=== PATIENT | female | born 1960 | race Caucasian/White ===

== ENCOUNTER 2021-03-27 10:36 | Outpatient (REF) | payer BC, SELFPAY ==
[2021-03-27 12:40] LABS: MANUAL DIFF FLAG NO
[2021-03-27 12:45] LABS: Basophils Percent Auto 0.6 % (0-2); Eosinophils Absolute Auto 0.1 X10*3/uL (0.0-0.4); Eosinophils Percent Auto 1.5 % (0-4); Hematocrit 40.6 % (37-47); Hemoglobin 13.1 g/dl (12.0-16.0); Imm Gran Abs Auto 0.02 X10*3/uL (0.00-0.03); Imm Gran Pct Auto 0.4 % (0.0-0.4); Lymphocytes Absolute Auto 1.8 X10*3/uL (1.2-4.9); Lymphocytes Percent Auto 33.4 % (20-40); Mean Corpuscular HGB Conc 32.3 g/dl (31.0-35.0); Mean Corpuscular Hemoglobin 29.5 pg (27.0-33.0); Mean Corpuscular Volume 91.4 fL (80-98); Mean Platelet Volume 10.8 fL (9.4-12.3); Monocytes Absolute Auto 0.4 X10*3/uL (0.1-1.2); Monocytes Percent Auto 7.7 % (2-11); Neutrophils Absolute Auto 3.1 X10*3/uL (2.0-8.3); Neutrophils Percent Auto 56.4 % (45-73); Platelet Count 312 X10*3/uL (160-400); Red Blood Count 4.44 X10*6/uL (4.20-5.50); Red Cell Distribution Width 12.9 % (11.0-16.0); White Blood Count 5.5 X10*3/uL (4.8-10.8)
[2021-03-27 13:04] LABS: Iron 100 mcg/dL (30-160); Percent Iron Saturation 23 % (15-50); Total Iron Binding Capacity 431 mcg/dL (228-428); Unsaturated Iron Binding 331 ug/dL
[2021-03-27 13:07] LABS: Alanine Aminotransferase 16 U/L (0-31); Albumin Level 4.8 g/dL (3.5-5.0); Alkaline Phosphatase 79 U/L (39-117); Anion Gap 14 (12-20); Aspartate Amino Transferase 30 U/L (5-31); Bilirubin Total 0.5 mg/dL (0.0-1.0); Blood Urea Nitrogen 18 mg/dL (9-16); Calcium 10.3 mg/dL (8.4-10.2); Carbon Dioxide 25 mmol/L (22-29); Chloride 104 mmol/L (96-108); Estimated Glomerular Filt Rate 59; Glucose Fasting 106 mg/dL (60-99); Potassium 4.3 mmol/L (3.3-5.1); Sodium 139 mmol/L (135-145); Total Protein 7.7 g/dL (6.5-8.0)
[2021-03-27 13:23] LABS: Estimated Average Glucose 120 mg/dL; Hemoglobin A1c % 5.8 %
[2021-03-27 13:26] LABS: Ferritin 149 ng/mL (10-250); Free T4 (Free Thyroxine) 0.82 ng/dL (0.71-1.85)
[2021-03-27 13:41] LABS: Folate > 20.0 ng/mL (> or = 4.0); Vitamin B12 538 pg/mL (200-900)
== END 2021-03-27 10:37 | disposition home or self-care (01) ==
LOC: HO.MANLDS 10:36
PROVIDERS: PCP Physician Assistant; Visit Provider Physician Assistant
DX: R35.0 Frequency of micturition (principal); R63.1 Polydipsia; G47.09 Other insomnia; R53.83 Other fatigue
CPT/HCPCS: 36415; 80053; 82306; 82607; 82728; 82746; 83036; 83540; 84439; 84443; 85025; 87086; 87186

== ENCOUNTER 2021-04-03 11:59 | Outpatient (REF) | payer BC, SELFPAY ==
[2021-04-03 14:16] LABS: Calcium 10.3 mg/dL (8.4-10.2)
[2021-04-04 14:31] LABS: PTHI 16 pg/mL (14-64)
== END 2021-04-03 12:00 | disposition home or self-care (01) ==
LOC: HO.MANLDS 11:59
PROVIDERS: PCP Physician Assistant; Visit Provider Physician Assistant
DX: E83.52 Hypercalcemia (principal)
CPT/HCPCS: 36415; 82310; 83970

== ENCOUNTER 2021-07-17 15:09 | Outpatient (REF) | payer BC, SELFPAY ==
[2021-07-17 17:44] LABS: MANUAL DIFF FLAG NO
[2021-07-17 17:47] LABS: Basophils Percent Auto 0.7 % (0-2); Eosinophils Absolute Auto 0.1 X10*3/uL (0.0-0.4); Eosinophils Percent Auto 1.5 % (0-4); Hematocrit 40.1 % (37.0-47.0); Imm Gran Abs Auto 0.02 X10*3/uL (0.00-0.03); Imm Gran Pct Auto 0.4 % (0.0-0.4); Lymphocytes Absolute Auto 1.7 X10*3/uL (1.2-4.9); Mean Corpuscular HGB Conc 32.4 g/dl (31.0-35.0); Mean Corpuscular Hemoglobin 29.5 pg (27.0-33.0); Mean Corpuscular Volume 90.9 fL (80.0-98.0); Mean Platelet Volume 10.7 fL (9.4-12.3); Monocytes Absolute Auto 0.4 X10*3/uL (0.1-1.2); Monocytes Percent Auto 7.1 % (2-11); Neutrophils Absolute Auto 3.2 x10*3/uL (2.0-8.3); Neutrophils Percent Auto 59.3 % (45-73); Platelet Count 299 X10*3/uL (160-400); Red Blood Count 4.41 X10*6/uL (4.20-5.50); Red Cell Distribution Width 12.8 % (11.0-16.0); White Blood Count 5.4 X10*3/uL (4.8-10.8)
[2021-07-17 17:59] LABS: Alanine Aminotransferase 14 U/L (0-31); Albumin Level 4.6 g/dL (3.5-5.0); Alkaline Phosphatase 87 U/L (39-117); Anion Gap 13 (12-20); Aspartate Amino Transferase 24 U/L (5-31); Bilirubin Total 0.4 mg/dL (0.0-1.0); Blood Urea Nitrogen 16 mg/dL (9-16); Calcium 9.9 mg/dL (8.4-10.2); Carbon Dioxide 26 mmol/L (22-29); Chloride 106 mmol/L (96-108); Estimated Glomerular Filt Rate > 60; Glucose Random 101 mg/dL (60-115); Iron 71 mcg/dL (30-160); Percent Iron Saturation 17 % (15-50); Potassium 3.8 mmol/L (3.3-5.1); Sodium 141 mmol/L (135-145); Total Iron Binding Capacity 414 mcg/dL (228-428); Total Protein 7.4 g/dL (6.5-8.0); Unsaturated Iron Binding 343 ug/dL
[2021-07-17 18:09] LABS: Estimated Average Glucose 120 mg/dL; Hemoglobin A1c % 5.8 %
[2021-07-17 18:40] LABS: Free T4 (Free Thyroxine) 0.84 ng/dL (0.71-1.85)
[2021-07-17 19:11] LABS: Ferritin 120 ng/mL (10-250)
[2021-07-22 08:40] LABS: SARS COV2 IgG Negative (Negative)
== END 2021-07-17 15:10 | disposition home or self-care (01) ==
LOC: HO.MANLDS 15:09
PROVIDERS: PCP Internal Medicine; Visit Provider Internal Medicine
DX: Z00.00 Encounter for general adult medical examination without abnormal findings (principal); Z20.822 Contact with and (suspected) exposure to COVID-19
CPT/HCPCS: 36415; 80053; 82728; 83036; 83540; 84439; 84443; 85025; 86769

== ENCOUNTER 2022-05-14 15:10 | Outpatient (REF) | payer BC, SELFPAY ==
[2022-05-14 18:20] LABS: MANUAL DIFF FLAG NO
[2022-05-14 18:24] LABS: Basophils Absolute Auto 0.1 X10*3/uL (0.0-0.2); Basophils Percent Auto 0.9 % (0-2); Eosinophils Absolute Auto 0.1 X10*3/uL (0.0-0.4); Eosinophils Percent Auto 2.1 % (0-4); Hematocrit 40.4 % (37.0-47.0); Hemoglobin 13.2 g/dl (12.0-16.0); Imm Gran Abs Auto 0.01 X10*3/uL (0.00-0.03); Imm Gran Pct Auto 0.2 % (0.0-0.4); Lymphocytes Absolute Auto 1.8 X10*3/uL (1.2-4.9); Mean Corpuscular HGB Conc 32.7 g/dl (31.0-35.0); Mean Corpuscular Hemoglobin 29.5 pg (27.0-33.0); Mean Corpuscular Volume 90.4 fL (80.0-98.0); Mean Platelet Volume 10.6 fL (9.4-12.3); Monocytes Absolute Auto 0.4 X10*3/uL (0.1-1.2); Monocytes Percent Auto 6.6 % (2-11); Neutrophils Absolute Auto 3.3 x10*3/uL (2.0-8.3); Neutrophils Percent Auto 58.2 % (45-73); Platelet Count 299 X10*3/uL (160-400); Red Blood Count 4.47 X10*6/uL (4.20-5.50); White Blood Count 5.7 X10*3/uL (4.8-10.8)
[2022-05-14 19:02] LABS: C Reactive Protein 0.53 mg/dL (< or = 0.50); Calcium 9.9 mg/dL (8.4-10.2); Ferritin 148 ng/mL (10-250); Free T4 (Free Thyroxine) 0.84 ng/dL (0.71-1.85); Iron 99 mcg/dL (30-160); Percent Iron Saturation 27 % (15-50); Thyroid Stimulating Hormone 2.35 uIU/mL (0.32-4.0); Total Iron Binding Capacity 367 mcg/dL (228-428); Unsaturated Iron Binding 268 ug/dL; Vitamin D 25-OH Total 33.8 ng/mL (>30)
[2022-05-14 19:04] LABS: Erythrocyte Sedimentation Rate 16 MM/HR (0-20)
[2022-05-14 22:27] LABS: Folate 16.2 ng/mL (> or = 4.0); Vitamin B12 573 pg/mL (200-900)
[2022-05-17 14:14] LABS: Calcium (PTHI) 9.9 mg/dL (8.6-10.4); PTHI 27 pg/mL (16-77)
== END 2022-05-14 15:11 | disposition home or self-care (01) ==
LOC: HO.MANLDS 15:10
PROVIDERS: Visit Provider Physician Assistant
DX: L63.8 Other alopecia areata (principal)
CPT/HCPCS: 36415; 82306; 82310; 82607; 82728; 82746; 83540; 83970; 84439; 84443; 85025; 85652; 86140

== ENCOUNTER 2023-12-18 07:39 | Outpatient (REF) | payer BC, SELFPAY ==
[2023-12-18 13:02] LABS: MANUAL DIFF FLAG NO
[2023-12-18 13:25] LABS: Basophils Percent Auto 0.8 % (0-2); Eosinophils Absolute Auto 0.1 X10*3/uL (0.0-0.4); Eosinophils Percent Auto 2.1 % (0-4); Hematocrit 43.5 % (37.0-47.0); Hemoglobin 13.8 g/dl (12.0-16.0); Imm Gran Abs Auto 0.02 X10*3/uL (0.00-0.03); Imm Gran Pct Auto 0.4 % (0.0-0.4); Lymphocytes Absolute Auto 1.7 X10*3/uL (1.2-4.9); Lymphocytes Percent Auto 36.5 % (20-40); Mean Corpuscular HGB Conc 31.7 g/dl (31.0-35.0); Mean Corpuscular Hemoglobin 29.4 pg (27.0-33.0); Mean Corpuscular Volume 92.6 fL (80.0-98.0); Mean Platelet Volume 10.4 fL (9.4-12.3); Monocytes Absolute Auto 0.3 X10*3/uL (0.1-1.2); Monocytes Percent Auto 5.7 % (2-11); Neutrophils Absolute Auto 2.6 x10*3/uL (2.0-8.3); Neutrophils Percent Auto 54.5 % (45-73); Platelet Count 280 X10*3/uL (160-400); Red Cell Distribution Width 13.3 % (11.0-16.0); White Blood Count 4.8 X10*3/uL (4.8-10.8)
[2023-12-18 13:43] LABS: Estimated Average Glucose 120 mg/dL; Hemoglobin A1c % 5.8 % (<6.0)
[2023-12-18 14:05] LABS: Alanine Aminotransferase 23 U/L (0-31); Albumin Level 4.7 g/dL (3.5-5.0); Alkaline Phosphatase 93 U/L (39-117); Anion Gap 14 (12-20); Aspartate Amino Transferase 34 U/L (5-31); Bilirubin Total 0.4 mg/dL (0.0-1.0); Blood Urea Nitrogen 15 mg/dL (9-16); Calcium 10.3 mg/dL (8.4-10.2); Carbon Dioxide 24 mmol/L (22-29); Chloride 108 mmol/L (96-108); Cholesterol 205 mg/dL (<200); Estimated Glomerular Filt Rate > 60; Glucose Random 115 mg/dL (60-115); HDL Cholesterol 54 mg/dL (>40); LDL Cholesterol Calculated 132 mg/dL (<100); Potassium 4.1 mmol/L (3.3-5.1); Sodium 142 mmol/L (135-145); Triglycerides 97 mg/dL (<150)
[2023-12-18 14:14] LABS: Vitamin D 25-OH Total 37.4 ng/mL (>30)
== END 2023-12-18 07:40 | disposition home or self-care (01) ==
LOC: HO.MANLDS 07:39
PROVIDERS: Visit Provider Internal Medicine
DX: R73.01 Impaired fasting glucose (principal); E78.5 Hyperlipidemia, unspecified
CPT/HCPCS: 36415; 80053; 80061; 82306; 83036; 85025